=== PATIENT | female | born 1950 | race Caucasian/White ===

== ENCOUNTER 2023-12-11 10:20 | Emergency (ER) | payer MEDICARE ==
[~2023-12-11] VITALS: Ht 157.5 cm; Wt 81.6 kg
[2023-12-11 10:28] VITALS: BP 163/81; O2SAT 97
[2023-12-11 10:54] LABS: RAPID GROUP A STREP negative (NEGATIVE)
[2023-12-11 11:00] LABS: SARS-CoV-2, RNA, NAAT NEGATIVE SARS CoV-2 (NEGATIVE)
[2023-12-11 11:04] LABS: INFLUENZA TYPE A Negative For Type A (NEGATIVE); INFLUENZA TYPE B Negative For Type B (NEGATIVE)
[2023-12-11] MEDS: DEXAMETHASONE SOD PHOSPHATE 4 MG/ML 1ML VIAL IM ONE (11:04)
[2023-12-11] MEDS: IPRATROPIUM/ALBUTEROL SULFATE 3 ML SOLUTION IH ONE (11:08)
[2023-12-11 11:10] VITALS: PULSE 91; RESP 18
[2023-12-11] MEDS ORDERED: ALBU18HF7 IH (13:22)
[2023-12-11] MEDS ORDERED: METH4TAB3 PO (13:22)
[2023-12-11] MEDS ORDERED: AZIT250T PO (13:22)
== END 2023-12-11 13:33 | disposition home or self-care (01) ==
LOC: EDH 10:20
DX: J20.9 Acute bronchitis, unspecified (principal); R05.1 Acute cough; I10 Essential (primary) hypertension; E78.00 Pure hypercholesterolemia, unspecified; Z20.822 Contact with and (suspected) exposure to COVID-19; Z90.710 Acquired absence of both cervix and uterus; Z98.890 Other specified postprocedural states; Z79.899 Other long term (current) drug therapy
CPT/HCPCS: 99284; 71045; 87635; 87880; 87804 ×2; 96372; 94640; J1100